=== PATIENT | male | born 1970 | race Caucasian/White ===

== ENCOUNTER 2019-07-27 14:25 | Emergency (ER) | payer SELFPAY ==
[~2019-07-27] VITALS: Ht 177.8 cm; Wt 65.8 kg
[2019-07-27 16:48] VITALS: BP 128/82
== END 2019-07-27 17:33 | disposition home or self-care (01) ==
LOC: ER 14:36
DX: F31.9 Bipolar disorder, unspecified (principal); F20.9 Schizophrenia, unspecified; Z76.0 Encounter for issue of repeat prescription

== ENCOUNTER 2019-08-07 12:08 | Emergency (ER) | payer OTHER ==
[~2019-08-07] VITALS: Ht 177.8 cm; Wt 68.0 kg
[2019-08-07 12:25] VITALS: BP 113/86
== END 2019-08-07 14:36 | disposition home or self-care (01) ==
LOC: ER 12:08
DX: F20.9 Schizophrenia, unspecified (principal); Z76.0 Encounter for issue of repeat prescription; Z87.891 Personal history of nicotine dependence

== ENCOUNTER 2019-12-01 12:45 | Emergency (ER) | payer OTHER, MEDICAID ==
[~2019-12-01] VITALS: Ht 180.3 cm; Wt 65.8 kg
[2019-12-01 13:02] VITALS: BP 134/99
== END 2019-12-01 13:15 | disposition left against medical advice (07) ==
LOC: ER 12:45
DX: R51 Headache (principal); F20.9 Schizophrenia, unspecified; F17.210 Nicotine dependence, cigarettes, uncomplicated

== ENCOUNTER 2019-12-01 15:28 | Emergency (ER) | payer OTHER, MEDICAID ==
[~2019-12-01] VITALS: Ht 177.8 cm; Wt 68.0 kg
[2019-12-01 15:57] VITALS: BP 129/97
== END 2019-12-01 16:43 | disposition home or self-care (01) ==
LOC: ER 15:28
DX: R51 Headache (principal); F17.210 Nicotine dependence, cigarettes, uncomplicated

== ENCOUNTER 2020-03-14 19:43 | Emergency (ER) | payer OTHER, MEDICAID ==
[~2020-03-14] VITALS: Ht 175.3 cm; Wt 65.8 kg
[2020-03-14 19:51] VITALS: BP 138/95
== END 2020-03-14 21:32 | disposition left against medical advice (07) ==
LOC: EDBD 19:43 → ER 19:52
DX: R51 Headache (principal); Z53.21 Procedure and treatment not carried out due to patient leaving prior to being seen by health care provider

== ENCOUNTER 2020-03-15 05:42 | Emergency (ER) | payer OTHER, MEDICAID ==
[~2020-03-15] VITALS: Ht 177.8 cm; Wt 63.5 kg
[2020-03-15 07:27] VITALS: BP 140/72
== END 2020-03-15 07:49 | disposition home or self-care (01) ==
LOC: EDBD 05:42 → ER 05:42
DX: S90.821A Blister (nonthermal), right foot, initial encounter (principal); F20.9 Schizophrenia, unspecified; F17.210 Nicotine dependence, cigarettes, uncomplicated; X58.XXXA Exposure to other specified factors, initial encounter; Y93.89 Activity, other specified; Y92.89 Other specified places as the place of occurrence of the external cause; Y99.8 Other external cause status
CPT/HCPCS: 99283; J7030